=== PATIENT | male | born 1965 | race Caucasian/White ===

== ENCOUNTER 2017-06-16 06:39 | Emergency (ER) | payer OTHER, SELFPAY ==
[~2017-06-16] VITALS: Ht 172.7 cm; Wt 118.2 kg
[2017-06-16] MEDS ORDERED: NS 500 ML IV ONE (07:00)
[2017-06-16] MEDS ORDERED: MORPHINE 4 MG/ML 1ML SYRINGE IV ONE (07:00)
[2017-06-16 07:39] LABS: BASO # 0.1 10^3/uL (0.0-0.2); BASO % 0.8 % (0.0-1.0); EOS # 0.4 10^3/uL (0.0-0.50); EOS % 4.3 % (0.0-3.0); IMMATURE GRANULOCYTE % 0.6 % (0-0); LYMPH % 11.7 % (24.0-44.0); MEAN CORPUSCULAR HEMOGLOBIN 30.1 pg (27.0-33.0); MEAN CORPUSCULAR HGB CONC 32.5 g/dl (32.0-36.5); MEAN CORPUSCULAR VOLUME 92.5 fl (80.0-96.0); MONO # 0.7 10^3/uL (0.0-0.8); NEUTROPHILS # 6.5 10^3/uL (1.8-7.7); NEUTROPHILS % 74.6 % (36.0-66.0); PLATELET COUNT, AUTOMATED 257 10^3/uL (150-450); RED CELL DISTRIBUTION WIDTH 13.7 % (11.5-14.5); WHITE BLOOD COUNT 8.7 10^3/uL (4.0-10.0)
[2017-06-16 07:50] LABS: INR 0.93
[2017-06-16 07:56] LABS: ALBUMIN 3.5 GM/DL (3.2-5.2); ALBUMIN/GLOBULIN RATIO 0.88 (1.00-1.93); ALKALINE PHOSPHATASE 45 U/L (45-117); ALT/SGPT 42 U/L (12-78); ANION GAP 9 MEQ/L (8-16); AST/SGOT 31 U/L (7-37); BILIRUBIN,DIRECT 0.1 MG/DL (0.0-0.2); BILIRUBIN,TOTAL 0.5 MG/DL (0.2-1.0); BLOOD UREA NITROGEN 20 MG/DL (7-18); CALCIUM LEVEL 8.1 MG/DL (8.5-10.1); CARBON DIOXIDE LEVEL 24 MEQ/L (21-32); CHLORIDE LEVEL 106 MEQ/L (98-107); CREATININE FOR GFR 1.25 MG/DL (0.70-1.30); GLOMERULAR FILTRATION RATE > 60.0 (>60); GLUCOSE, FASTING 102 MG/DL (70-105); POTASSIUM SERUM 4.3 MEQ/L (3.5-5.1); SODIUM LEVEL 139 MEQ/L (136-145); TOTAL PROTEIN 7.5 GM/DL (6.4-8.2)
[2017-06-16] MEDS: MORPHINE 4 MG/ML 1ML SYRINGE IV PRN ×2 (07:57→09:43)
[2017-06-16] MEDS ORDERED: ISOVUE-370 76% 100ML VIAL (Q9967) As Ordered ONE (07:59)
[2017-06-16] MEDS ORDERED: ONDANSETRON 4MG/2ML VIAL (J2405) IV ONE (08:00)
[2017-06-16] MEDS ORDERED: IBUP-1022 PO (09:49)
[2017-06-16 09:51] VITALS: BP 128/75
--- NOTE | 2017-06-16 12:06 | REP ---
REASON: Trauma. PRIORS: None. CONTRAST: 100 mL Isovue 370. There is no mediastinal or hilar adenopathy. There are no pleural or pericardial effusions. Evaluation of the lung land show no abnormal nodules, masses, or opacities. Bilateral basilar dependent subsegmental atelectatic changes are present. Bone window technique throughout the exam shows the osseous structures to be within normal limits. IMPRESSION: No acute abnormality is noted. Signed by Eyal Real DO 06/16/2017 09:46 A
--- NOTE | 2017-06-16 12:06 | REP ---
REASON: Pain in the neck. COMPARISON: None. There is no evidence of an acute cervical spine fracture. The facet joints are well aligned bilaterally. There is degenerative change seen at every level but particularly C5-6 and C6-7 where there is irregular joint space narrowing along with anterior and posterior osteophytic ridging. Hypertrophic degenerative uncovertebral joint changes are also seen at every level bilaterally. IMPRESSION: Chronic changes. No evidence of an acute fracture. Signed by Eyal Real DO 06/16/2017 09:20 A
--- NOTE | 2017-06-16 12:06 | REP ---
REASON: Trauma. PRIORS: None. TECHNIQUE: 4.5 mm contiguous transaxial sections were obtained from the skull base to the cerebral convexities with thin cuts through the posterior fossa without the administration of intravenous contrast. FINDINGS: The ventricles and sulci are consistent with the patient's age. There are no extra-axial fluid collections. There is no mass effect. The deep cerebral white matter is consistent with the patient's age. The orbital and petrous structures, cerebellopontine angles, and posterior fossa are unremarkable. The sella turcica, cavernous, and paracavernous structures are essentially unremarkable. The visualized portions of the paranasal sinuses and mastoid air cells are clear. Images of the skull base show no gross abnormality. IMPRESSION: Essentially unremarkable CT examination of the brain. There is minimal mucosal thickening in the sphenoid sinus which is probably chronic. Signed by Eyal Real DO 06/16/2017 09:19 A
--- NOTE | 2017-06-16 12:06 | REP ---
REASON FOR EXAM: Pain after trauma. Comparison abdominal and pelvic CT: None. CONTRAST: 100 mL Isovue 370. The liver and spleen are unremarkable. There is cholelithiasis. The pancreas, adrenal glands and kidneys are within normal limits. The abdominal aorta and para-aortic regions are within normal limits. Limited evaluation of the bowel loops and their mesenteries show no gross abnormalities. There is no free fluid or free air. There is no intra-abdominal mass or adenopathy. CT PELVIS: The bowel loops and their mesenteries are unremarkable. There is no mass or adenopathy. There is corpora amylacea. There is no free fluid or free air. Bone window technique throughout the exam show the osseous structures to be within normal limits. IMPRESSION: CT findings are within normal limits. Signed by Eyal Real DO 06/16/2017 09:46 A
--- NOTE | 2017-06-16 12:07 | REP ---
BILATERAL HUMERUS: REASON: Trauma. FINDINGS: No acute fracture or destructive osseous lesion. Signed by Eyal Real DO 06/16/2017 11:17 A
--- NOTE | 2017-06-16 12:07 | REP ---
LEFT SHOULDER: Pain after trauma. Three views of the left shoulder show no acute fracture or destructive osseous lesion. Mild degenerative change seen involving the acromioclavicular joint. Calcifications are seen adjacent to the humeral head within the subacromial space possibly secondary to chronic calcific supraspinatus tendinitis. RIGHT SHOULDER: Three views of the right shoulder show no acute fracture or destructive osseous lesion. Mild degenerative change is seen involving the acromioclavicular joint. It should be stated that the right AC joint appears somewhat better aligned than the left, however, this is not an AC joint study and only an AC joint study is used to assess the stability of the AC joint. The difference in appearance seen today between the right and left could be chronic and stable. Signed by Eyal Real DO 06/16/2017 11:17 A
== END 2017-06-16 10:00 | disposition home or self-care (01) ==
LOC: M ED 06:39
DX: S40.021A Contusion of right upper arm, initial encounter (principal); S40.022A Contusion of left upper arm, initial encounter; V48.0XXA Car driver injured in noncollision transport accident in nontraffic accident, initial encounter; Y92.89 Other specified places as the place of occurrence of the external cause; Y93.89 Activity, other specified; Y99.9 Unspecified external cause status; E66.01 Morbid (severe) obesity due to excess calories
CPT/HCPCS: 36415; 70450; 71260; 72125; 73030; 73060; 74177; 80048; 80076; 85025; 85610; 85730; 96374; 96375; 96376; 99285; J2405; Q9967

== ENCOUNTER 2017-06-18 19:25 | Emergency (ER) | payer OTHER, SELFPAY ==
[~2017-06-18] VITALS: Ht 172.7 cm; Wt 127.3 kg
[~2017-06-18 19:25] MED LIST: IBUP-1022 PO
[2017-06-18] MEDS ORDERED: ADACEL/BOOSTRIX VACCINE (DIPHTH/PERTUSS/ACELL/TETANUS)0.5ML SYR (90715) IM ONE (22:15)
[2017-06-18] MEDS ORDERED: METHOCARBAMOL 1,000 MG/10 ML VIAL (J2800) IM ONE (22:15)
[2017-06-18] MEDS: ADACEL/BOOSTRIX VACCINE (DIPHTH/PERTUSS/ACELL/TETANUS)0.5ML SYR (90715) IM ONE ×2 (22:45→22:58)
[2017-06-18] MEDS: METHOCARBAMOL 1,000 MG/10 ML VIAL (J2800) IM ONE ×2 (22:45→22:56)
[2017-06-18] MEDS ORDERED: VALI5TAB PO (23:16)
[2017-06-18 23:18] VITALS: BP 137/66
== END 2017-06-18 23:32 | disposition home or self-care (01) ==
LOC: M ED 19:25
DX: S16.1XXA Strain of muscle, fascia and tendon at neck level, initial encounter (principal); S29.012A Strain of muscle and tendon of back wall of thorax, initial encounter; V48.5XXA Car driver injured in noncollision transport accident in traffic accident, initial encounter; Y92.410 Unspecified street and highway as the place of occurrence of the external cause; Y93.9 Activity, unspecified; Y99.9 Unspecified external cause status
CPT/HCPCS: 90471; 90715; 96372; 99283; J2800

== ENCOUNTER 2022-07-29 13:24 | Emergency (ER) | payer SELFPAY ==
[~2022-07-29] VITALS: Ht 172.7 cm; Wt 111.8 kg
[~2022-07-29 13:24] MED LIST changes: +VALI5TAB PO
[2022-07-29 13:25] VITALS: BP 123/77
[2022-07-29] MEDS ORDERED: ACET325C5 PO (14:17)
== END 2022-07-29 15:35 | disposition left against medical advice (07) ==
LOC: M ED 14:48
DX: Z53.21 Procedure and treatment not carried out due to patient leaving prior to being seen by health care provider (principal)

== ENCOUNTER → 2022-10-25 | Outpatient (CLI) | payer SELFPAY ==
[~2022-10-25] MED LIST changes: +ACET325C5 PO
[2022-10-25 18:14] LABS: BASO # 0.1 10^3/uL (0.0-0.2); BASO % 1.1 % (0.0-1.0); EOS # 0.3 10^3/uL (0.0-0.5); EOS % 4.1 % (0.0-3.0); HEMATOCRIT 47.5 % (42.0-52.0); HEMOGLOBIN 15.5 g/dl (13.5-17.5); LYMPH # 1.4 10^3/uL (1.5-5.0); LYMPH % 16.9 % (24.0-44.0); MEAN CORPUSCULAR HEMOGLOBIN 30.3 pg (27.0-33.0); MEAN CORPUSCULAR HGB CONC 32.6 g/dl (32.0-36.5); MONO # 0.8 10^3/uL (0.0-0.8); MONO % 9.6 % (2.0-8.0); NEUTROPHILS # 5.6 10^3/uL (1.5-8.5); NEUTROPHILS % 67.8 % (36.0-66.0); PLATELET COUNT, AUTOMATED 301 10^3/uL (150-450); RED BLOOD COUNT 5.11 10^6/uL (4.30-6.10); WHITE BLOOD COUNT 8.3 10^3/uL (4.0-10.0)
[2022-10-25 18:34] LABS: ALBUMIN 3.6 G/DL (3.2-5.2); ALKALINE PHOSPHATASE 83 U/L (46-116); ALT/SGPT 44 U/L (7.0-40); AST/SGOT 33 U/L (<34); BILIRUBIN,TOTAL 0.8 MG/DL (0.3-1.2); BLOOD UREA NITROGEN 14 MG/DL (9-23); CARBON DIOXIDE LEVEL 28 MMOL/L (20-31); CHLORIDE LEVEL 102 MMOL/L (98-107); CHOLESTEROL LEVEL 132 MG/DL (<200); CHOLESTEROL RISK RATIO 3.43 (<5); CREATININE FOR GFR 0.88 MG/DL (0.70-1.30); GLOMERULAR FILTRATION RATE > 60.0 (>56); GLUCOSE, FASTING 83 MG/DL (60-100); HDL CHOLESTEROL 38.4 MG/DL (>40); LDL CHOLESTEROL 77.2 MG/DL (<100); NON-HDL-C 93.6 MG/DL; POTASSIUM SERUM 4.5 MMOL/L (3.5-5.1); SODIUM LEVEL 138 MMOL/L (136-145); TOTAL PROTEIN 7.8 G/DL (5.7-8.2); TRIGLYCERIDES LEVEL 82 MG/DL (<150)
[2022-10-25 18:41] LABS: THYROID STIMULATING HORMONE 1.158 uIU/ML (0.55-4.78)
[2022-10-25 18:42] LABS: FREE T4 1.09 NG/DL (0.89-1.76)
== END ==
LOC: M PLALAB 14:45
PROVIDERS: ATTEND Student in an Organized Health Care Education/Training Program
DX: Z00.00 Encounter for general adult medical examination without abnormal findings (principal)

== ENCOUNTER → 2023-11-19 | Outpatient (CLI) | payer OTHER ==
[2023-11-19 18:46] LABS: HEMOGLOBIN A1c 4.8 % (4.0-6.0)
[2023-11-19 18:57] LABS: CHOLESTEROL RISK RATIO 3.2 (<5); HDL CHOLESTEROL 50.8 MG/DL (>40); NON-HDL-C 112.2 MG/DL
== END ==
LOC: M PLALAB 15:23
PROVIDERS: ATTEND Student in an Organized Health Care Education/Training Program
DX: Z00.00 Encounter for general adult medical examination without abnormal findings (principal)

== ENCOUNTER 2024-05-23 06:06 | Emergency (ER) | payer MEDICAID, OTHER ==
[~2024-05-23] VITALS: Ht 172.7 cm; Wt 113.6 kg
[2024-05-23] MEDS ORDERED: ISOVUE-370 76% 100ML VIAL As Ordered ONE (07:17)
[2024-05-23 07:41] LABS: CK-MB VALUE MASS < 1.0 NG/ML (<3.6)
[2024-05-23 07:42] LABS: CPK CREATINE PHOSPHOKINASE 90 U/L (46-171); MB/CK RELATIVE INDEX 1.11 (< OR =4)
[2024-05-23 07:43] LABS: BASO # 0.1 10^3/uL (0.0-0.2); BASO % 1.2 % (0.0-1.0); EOS % 0.8 % (0.0-3.0); HEMATOCRIT 48.1 % (42.0-52.0); HEMOGLOBIN 15.9 g/dl (13.5-17.5); LYMPH # 0.9 10^3/uL (1.5-5.0); LYMPH % 18.8 % (24.0-44.0); MEAN CORPUSCULAR HEMOGLOBIN 31.4 pg (27.0-33.0); MEAN CORPUSCULAR HGB CONC 33.1 g/dl (32.0-36.5); MEAN CORPUSCULAR VOLUME 94.9 fl (80.0-96.0); MONO # 0.8 10^3/uL (0.0-0.8); MONO % 15.5 % (2.0-8.0); NEUTROPHILS # 3.1 10^3/uL (1.5-8.5); NEUTROPHILS % 63.3 % (36.0-66.0); PLATELET COUNT, AUTOMATED 167 10^3/uL (150-450); RED BLOOD COUNT 5.07 10^6/uL (4.30-6.10); WHITE BLOOD COUNT 4.9 10^3/uL (4.0-10.0)
[2024-05-23 07:44] LABS: ETHYL ALCOHOL (ETHANOL) < 0.003 % (0.000-0.010)
[2024-05-23 07:45] VITALS: BP 123/71; TEMP 98.2; O2SAT 96
[2024-05-23 07:54] LABS: INR 1.02; PROTHROMBIN TIME 13.8 SECONDS (12.5-14.5)
[2024-05-23] MEDS ORDERED: NALT50TA4 PO ×2 (08:39)
[2024-05-23] MEDS ORDERED: ACET-683 PO (08:39)
[2024-05-23] MEDS ORDERED: SILD100T PO (08:39)
[2024-05-23] MEDS ORDERED: BUPR15TASR PO (08:39)
[2024-05-23] MEDS ORDERED: MECL-86 PO (08:39)
[2024-05-23] MEDS ORDERED: HOME MED LIST COMPLETE! XX SCH (08:40)
[2024-05-23 08:45] VITALS: BP 122/65
[2024-05-23 08:52] VITALS: TEMP 98.1; O2SAT 94
== END 2024-05-23 09:01 | disposition home or self-care (01) ==
LOC: M ED 06:06
DX: H81.4 Vertigo of central origin (principal); Z79.1 Long term (current) use of non-steroidal anti-inflammatories (NSAID); Z79.899 Other long term (current) drug therapy
CPT/HCPCS: 36415; 70450; 70496; 70498; 71045; 80047; 82077; 82550; 82553; 84484; 85025; 85610; 85730; 93005; 93041; 94760; 99285; Q9967

== ENCOUNTER 2024-07-25 02:47 | Emergency (ER) | payer MEDICAID, OTHER ==
[~2024-07-25] VITALS: Ht 167.6 cm; Wt 114.5 kg
[~2024-07-25 02:47] MED LIST changes: +ACET-683 PO; +BUPR15TASR PO; +MECL-86 PO; +NALT50TA4 PO; +SILD100T PO
[2024-07-25] MEDS: NS (Normal Saline) 0.9% 1,000 ML IV ONE (03:46)
[2024-07-25 03:58] LABS: BASO # 0.1 10^3/uL (0.0-0.2); BASO % 0.7 % (0.0-1.0); EOS # 0.1 10^3/uL (0.0-0.5); EOS % 0.9 % (0.0-3.0); HEMATOCRIT 45.4 % (42.0-52.0); HEMOGLOBIN 15.2 g/dl (13.5-17.5); LYMPH # 0.6 10^3/uL (1.5-5.0); LYMPH % 8.3 % (24.0-44.0); MEAN CORPUSCULAR HEMOGLOBIN 31.1 pg (27.0-33.0); MEAN CORPUSCULAR HGB CONC 33.5 g/dl (32.0-36.5); MONO # 0.4 10^3/uL (0.0-0.8); NEUTROPHILS # 6.3 10^3/uL (1.5-8.5); NEUTROPHILS % 84.6 % (36.0-66.0); PLATELET COUNT, AUTOMATED 191 10^3/uL (150-450); RED BLOOD COUNT 4.88 10^6/uL (4.30-6.10); WHITE BLOOD COUNT 7.4 10^3/uL (4.0-10.0)
[2024-07-25 04:14] LABS: ETHYL ALCOHOL (ETHANOL) < 0.003 % (0.000-0.010)
[2024-07-25 04:16] LABS: SALICYLATE LEVEL < 3.0 MG/DL (<30)
[2024-07-25 04:19] LABS: THYROID STIMULATING HORMONE 2.072 uIU/ML (0.55-4.78)
[2024-07-25 04:20] LABS: ALBUMIN 3.9 G/DL (3.2-5.2); ALKALINE PHOSPHATASE 54 U/L (40-129); ALT/SGPT 33 U/L (7.0-40); AST/SGOT 27 U/L (<34); BILIRUBIN,DIRECT 0.2 MG/DL (<0.4); BILIRUBIN,TOTAL 0.5 MG/DL (0.3-1.2); BLOOD UREA NITROGEN 22 MG/DL (9-23); CALCIUM LEVEL 9.1 MG/DL (8.5-10.1); CARBON DIOXIDE LEVEL 28 MMOL/L (20-31); CHLORIDE LEVEL 105 MMOL/L (98-107); CPK CREATINE PHOSPHOKINASE 127 U/L (46-171); CREATININE FOR GFR 1.41 MG/DL (0.70-1.30); GLOMERULAR FILTRATION RATE 55.4 (>56); GLUCOSE, FASTING 136 MG/DL (60-100); POTASSIUM SERUM 4.7 MMOL/L (3.5-5.1); SODIUM LEVEL 140 MMOL/L (136-145); TOTAL PROTEIN 7.4 G/DL (5.7-8.2)
[2024-07-25 08:26] LABS: AMPHETAMINES LEVEL URINE NEGATIVE (NEGATIVE); BARBITURATES URINE NEGATIVE (NEGATIVE); BENZODIAZEPINES URINE NEGATIVE (NEGATIVE); COCAINE METABOLITE URINE NEGATIVE (NEGATIVE); METHADONE URINE NEGATIVE (NEGATIVE); OPIATES URINE NEGATIVE (NEGATIVE); PHENCYCLIDINE URINE NEGATIVE (NEGATIVE)
[2024-07-25 08:36] LABS: CANNABINOIDS URINE POSITIVE (NEGATIVE)
[2024-07-25 10:01] VITALS: BP 135/62; TEMP 97.2; O2SAT 95
== END 2024-07-25 10:37 | disposition home or self-care (01) ==
LOC: M ED 02:47
DX: R40.0 Somnolence (principal); T40.715A Adverse effect of cannabis, initial encounter; F41.1 Generalized anxiety disorder; F17.200 Nicotine dependence, unspecified, uncomplicated; F10.10 Alcohol abuse, uncomplicated; Z79.899 Other long term (current) drug therapy; Z79.1 Long term (current) use of non-steroidal anti-inflammatories (NSAID)

== ENCOUNTER → 2024-09-29 | Outpatient (CLI) | payer OTHER | LOC: M SLEEP HO 11:05 | PROVIDERS: ATTEND Student in an Organized Health Care Education/Training Program | DX: G47.33 Obstructive sleep apnea (adult) (pediatric) (principal); I10 Essential (primary) hypertension ==

== ENCOUNTER → 2025-02-20 | Outpatient (CLI) | payer OTHER ==
[2025-02-20 14:02] LABS: PSA SCREENING 0.4 NG/ML (< 4.00)
[2025-02-20 14:03] LABS: ALT/SGPT 30.0 U/L (7.0-40); AST/SGOT 32.0 U/L (<34); CALCIUM LEVEL 8.7 MG/DL (8.5-10.1); CARBON DIOXIDE LEVEL 29.0 MMOL/L (20-31); CHLORIDE LEVEL 106.0 MMOL/L (98-107); CHOLESTEROL LEVEL 151.0 MG/DL (<200); CHOLESTEROL RISK RATIO 3.56 (<5); CREATININE FOR GFR 1.04 MG/DL (0.70-1.30); GLOMERULAR FILTRATION RATE 83.8 (>56); LDL CHOLESTEROL 95.6 MG/DL (<100); NON-HDL-C 108.6 MG/DL; POTASSIUM SERUM 4.6 MMOL/L (3.5-5.1); SODIUM LEVEL 145.0 MMOL/L (136-145); TRIGLYCERIDES LEVEL 65.0 MG/DL (<150)
[2025-02-20 14:26] LABS: ESTIMATED AVERAGE GLUCOSE 103.0 MG/DL (60-110)
== END ==
LOC: M PLALAB 10:01
PROVIDERS: ATTEND Student in an Organized Health Care Education/Training Program
DX: Z00.00 Encounter for general adult medical examination without abnormal findings (principal); I10 Essential (primary) hypertension

== ENCOUNTER → 2025-05-18 | Outpatient (CLI) | payer OTHER ==
[~2025-05-18] MED LIST changes: -IBUP-1022 PO; +IBUP600T42 PO
[2025-05-18 19:17] LABS: CALCIUM LEVEL 9.1 MG/DL (8.5-10.1); CARBON DIOXIDE LEVEL 32.0 MMOL/L (20-31); CHLORIDE LEVEL 103.0 MMOL/L (98-107); CREATININE FOR GFR 1.07 MG/DL (0.70-1.30); GLOMERULAR FILTRATION RATE 80.9 (>56); POTASSIUM SERUM 4.5 MMOL/L (3.5-5.1); SODIUM LEVEL 145.0 MMOL/L (136-145)
== END ==
LOC: M PLALAB 16:33
PROVIDERS: ATTEND Student in an Organized Health Care Education/Training Program
DX: I10 Essential (primary) hypertension (principal); M79.675 Pain in left toe(s); M19.072 Primary osteoarthritis, left ankle and foot